=== PATIENT | male | born 2000 | race Caucasian/White ===

== ENCOUNTER 2021-07-26 20:23 | Emergency (ER) | payer OTHER ==
[2021-07-26] MEDS ORDERED: IBUPROFEN600 MG PO (22:03)
[2021-07-26] MEDS ORDERED: POLYTRIM EYE DR10 ML EYEBOTH (22:03)
== END 2021-07-26 22:10 | disposition home or self-care (01) ==
LOC: ER1 20:23
DX: H16.143 Punctate keratitis, bilateral (principal); F17.210 Nicotine dependence, cigarettes, uncomplicated
CPT/HCPCS: 99283